=== PATIENT | male | born 1965 | race Caucasian/White ===

== ENCOUNTER 2017-01-28 16:38 | Emergency (ER) | payer OTHER, BC ==
[~2017-01-28 16:38] MED LIST: FIORIC PO
[2017-01-28 16:45] VITALS: BP 167/93; PULSE 90; RESP 20; TEMP 98.6; O2SAT 96
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
[2017-01-28] MEDS ORDERED: ROBA500T PO (18:00)
[2017-01-28] MEDS ORDERED: ORPHENADRINE INJ 60 MG/2 ML AMP IM ONE (18:00)
[2017-01-28] MEDS ORDERED: KETOROLAC TROMETHAMINE 60 MG/2 ML (IM) VIAL IM ONE (18:00)
== END 2017-01-28 18:40 | disposition home or self-care (01) ==
LOC: PHEFT 16:38
DX: S16.1XXA Strain of muscle, fascia and tendon at neck level, initial encounter (principal); S29.019A Strain of muscle and tendon of unspecified wall of thorax, initial encounter; V89.2XXA Person injured in unspecified motor-vehicle accident, traffic, initial encounter
CPT/HCPCS: 72072; 72125; 96372; 99285; J1885; J2360